=== PATIENT | male | born 1990 | race Caucasian/White ===

== ENCOUNTER 2019-09-12 08:32 | Emergency (ER) | payer OTHER ==
[2019-09-12] MEDS ORDERED: Diphtheria,Pertussis(Acell),Tetanus Vaccine 0.5 ML Syringe IM ONE (08:42)
[2019-09-12] MEDS ORDERED: Lidocaine 1% 10 ML MDV INJECT ONE (08:42)
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
[2019-09-12] MEDS ORDERED: Acetaminophen 325 MG Tab PO ONE (09:01)
== END 2019-09-12 10:15 | disposition home or self-care (01) ==
LOC: JD.ED 08:32
DX: S01.81XA Laceration without foreign body of other part of head, initial encounter (principal); V47.5XXA Car driver injured in collision with fixed or stationary object in traffic accident, initial encounter; Y92.410 Unspecified street and highway as the place of occurrence of the external cause
CPT/HCPCS: 12013; 90471; 90715; 99284; A9270; J2001; 99282